=== PATIENT | male | born 1975 | race Two or more races ===

== ENCOUNTER 2017-09-08 15:15 | Emergency (ER) | payer SELFPAY ==
[~2017-09-08] VITALS: Ht 162.6 cm; Wt 79.4 kg
[2017-09-08] MEDS ORDERED: SODIUM CHLORIDE 0.9% 1,000 ML IV ONE (15:19)
[2017-09-08] MEDS ORDERED: ASPirin 325 MG TAB PO ONE (15:30)
[2017-09-08] MEDS ORDERED: NITROGLYCERIN 0.4 MG SL TAB SL ONE (15:30)
[2017-09-08 16:29] LABS: Albumin 3.9 g/dL (3.4-5.0); Alkaline Phosphatase 71 U/L (45-117); Anion Gap 7 (5-15); Aspartate Aminotransferase 14 U/L (15-37); BUN/Creatinine Ratio 7.6; Bilirubin, Total 0.7 mg/dL (0.2-1.0); Blood Urea Nitrogen 5 mg/dL (7-18); Calcium 8.8 mg/dL (8.5-10.1); Carbon Dioxide 25 mmol/L (21-32); Chloride 106 mmol/L (98-107); GFR African American 169 mL/min; GFR Non-African American 139 mL/min; Glucose 109 mg/dL (74-106); Potassium 3.4 mmol/L (3.5-5.1); Sodium 138 mmol/L (136-145); Total Protein 7.7 g/dL (6.4-8.2)
[2017-09-08 16:30] LABS: Basophils # (auto) 0.1 uL; Eosinophils # (auto) 0 uL; Eosinophils % (auto) 0.6 % (0.0-7.0); Monocytes # (auto) 0.7 uL; Nucleated Red Blood Cells % 0.1 %
[2017-09-08 16:31] LABS: Basophils % (auto) 0.7 % (0.0-2.0); Lymphocytes # (auto) 1.3 uL; Lymphocytes % (auto) 16.6 % (10.0-50.0); Mean Corpuscular Hemoglobin 21.8 pg (28.0-32.0); Mean Corpuscular Hgb Conc. 31.4 g/dL (32.0-36.0); Mean Corpuscular Volume 69.6 fL (80.0-100.0); Mean Platelet Volume 8.6 fL (6.9-10.8); Monocytes % (auto) 9.4 % (0.0-12.0); Neutrophils # (auto) 5.7 uL; Neutrophils % (auto) 72.7 % (37.0-80.0); Platelet Count (auto) 361 10^3/uL (140-450); White Blood Cell 7.8 10^3/uL (4.4-10.8)
[2017-09-08 16:45] LABS: Red Cell Distribution Width 20.8 % (11.8-14.3)
[2017-09-08 17:29] LABS: INR 0.96 (0.9-1.15); Partial Thromboplastin Time 25.2 sec (22.64-33.71); Prothrombin Time 10.5 sec (9.37-12.3)
[2017-09-08 19:00] VITALS: BP 140/74
[2017-09-08 19:12] LABS: Anisocytosis Slight; Hypochromia Moderate; Microcytosis Marked; Platelet Estimate Adequate
== END 2017-09-08 20:43 | disposition home or self-care (01) ==
LOC: ER 15:15
DX: F41.9 Anxiety disorder, unspecified (principal); I10 Essential (primary) hypertension; R51 Headache
CPT/HCPCS: 36415; 70450; 71010; 80053; 84443; 84484; 85025; 85610; 85730; 93005; 96360; 99285; J7030

== ENCOUNTER 2017-09-09 01:20 | Emergency (ER) | payer SELFPAY ==
[~2017-09-09] VITALS: Ht 162.6 cm; Wt 54.4 kg
[2017-09-09 01:25] VITALS: BP 168/123
[2017-09-09] MEDS ORDERED: cloNIDine HCL 0.1 MG TAB ONE (01:29)
[2017-09-09] MEDS ORDERED: cloNIDine HCL 0.1 MG TAB PO ONE (01:45)
== END 2017-09-09 08:15 | disposition left against medical advice (07) ==
LOC: EDBD 01:20 → ER 01:22
DX: I10 Essential (primary) hypertension (principal); Z53.21 Procedure and treatment not carried out due to patient leaving prior to being seen by health care provider

== ENCOUNTER 2017-11-13 07:41 | Emergency (ER) | payer SELFPAY ==
[~2017-11-13] VITALS: Ht 160 cm; Wt 68.0 kg
[2017-11-13 09:24] VITALS: BP 117/83
== END 2017-11-13 09:31 | disposition home or self-care (01) ==
LOC: ER 07:41
DX: F41.9 Anxiety disorder, unspecified (principal); I10 Essential (primary) hypertension

== ENCOUNTER 2018-01-17 21:14 | Emergency (ER) | payer MEDICAID ==
[~2018-01-17] VITALS: Ht 162.6 cm; Wt 56.7 kg
[2018-01-17] MEDS ORDERED: cloNIDine HCL 0.1 MG TAB ONE (21:21)
[2018-01-17] MEDS ORDERED: cloNIDine HCL 0.1 MG TAB PO ONE (21:30)
[2018-01-17 22:13] LABS: Basophils # (auto) 0.1 uL; Eosinophils # (auto) 0.1 uL; Lymphocytes # (auto) 1.2 uL; Lymphocytes % (auto) 11.9 % (10.0-50.0)
[2018-01-17 22:15] LABS: Basophils % (auto) 0.5 % (0.0-2.0); Eosinophils % (auto) 0.6 % (0.0-7.0); Hemoglobin 12.9 g/dL (13.5-17.5); Mean Corpuscular Hemoglobin 25.9 pg (28.0-32.0); Mean Corpuscular Volume 78.7 fL (80.0-100.0); Monocytes # (auto) 0.9 uL; Monocytes % (auto) 9.3 % (0.0-12.0); Neutrophils # (auto) 7.8 uL; Neutrophils % (auto) 77.7 % (37.0-80.0); Nucleated Red Blood Cells % 0.1 %; Platelet Count (auto) 324 10^3/uL (140-450); Red Blood Cells 4.96 10^6/uL (4.5-5.90); Red Cell Distribution Width 16.5 % (11.8-14.3)
[2018-01-17 22:27] LABS: Alanine Aminotransferase 29 U/L (16-61); Albumin 4.2 g/dL (3.4-5.0); Anion Gap 5 (5-15); BUN/Creatinine Ratio 14.3; Blood Urea Nitrogen 10 mg/dL (7-18); Calcium 8.9 mg/dL (8.5-10.1); Carbon Dioxide 28 mmol/L (21-32); Chloride 102 mmol/L (98-107); GFR African American 158 mL/min; GFR Non-African American 130 mL/min; Glucose 110 mg/dL (74-106); Magnesium 2.5 mg/dL (1.6-2.6); Sodium 135 mmol/L (136-145)
[2018-01-17 22:37] LABS: Alkaline Phosphatase 78 U/L (45-117); Aspartate Aminotransferase 32 U/L (15-37); Bilirubin, Total 0.7 mg/dL (0.2-1.0); Total Protein 8.3 g/dL (6.4-8.2)
[2018-01-17] MEDS ORDERED: LORazepam 0.5 MG TAB PO ONE (23:15)
[2018-01-17 23:18] VITALS: BP 161/84
== END 2018-01-17 23:33 | disposition home or self-care (01) ==
LOC: ER 21:14
DX: I10 Essential (primary) hypertension (principal); R06.02 Shortness of breath; R51 Headache; E11.9 Type 2 diabetes mellitus without complications
CPT/HCPCS: 36415; 71045; 80053; 83735; 84484; 85025; 93005; 99285; J7030

== ENCOUNTER 2018-04-11 13:23 | Observation (INO) | payer SELFPAY ==
[~2018-04-11] VITALS: Ht 167.6 cm; Wt 81.6 kg
[2018-04-11] MEDS ORDERED: SODIUM CHLORIDE 0.9% 1,000 ML IVB ONE (13:41)
[2018-04-11] MEDS ORDERED: MORPHINE SULFATE 4 MG/ML SYR/VIAL IV ONE (13:45)
[2018-04-11] MEDS ORDERED: METOCLOPRAMIDE HCL 5MG/ml INJ 2ml VIAL IV ONE (13:45)
[2018-04-11 13:55] LABS: Basophils # (auto) 0.1 uL; Eosinophils # (auto) 0.1 uL; Hemoglobin 13.5 g/dL (13.5-17.5)
[2018-04-11 13:57] LABS: Basophils % (auto) 1.1 % (0.0-2.0); Eosinophils % (auto) 1.1 % (0.0-7.0); Lymphocytes # (auto) 1.4 uL; Lymphocytes % (auto) 17.8 % (10.0-50.0); Mean Corpuscular Hemoglobin 26.2 pg (28.0-32.0); Mean Corpuscular Hgb Conc. 32.1 g/dL (32.0-36.0); Mean Corpuscular Volume 81.5 fL (80.0-100.0); Monocytes # (auto) 0.9 uL; Monocytes % (auto) 11.6 % (0.0-12.0); Neutrophils # (auto) 5.4 uL; Neutrophils % (auto) 68.4 % (37.0-80.0); Platelet Count (auto) 298 10^3/uL (140-450); Red Blood Cells 5.16 10^6/uL (4.5-5.90); Red Cell Distribution Width 18.6 % (11.8-14.3)
[2018-04-11] MEDS ORDERED: cloNIDine HCL 0.1 MG TAB PO ONE (14:00)
[2018-04-11 14:10] LABS: Alanine Aminotransferase 24 U/L (16-61); Albumin 3.9 g/dL (3.4-5.0); Anion Gap 9 (5-15); Aspartate Aminotransferase 21 U/L (15-37); BUN/Creatinine Ratio 10.7; Blood Urea Nitrogen 9 mg/dL (7-18); Calcium 8.9 mg/dL (8.5-10.1); Carbon Dioxide 23 mmol/L (21-32); Chloride 102 mmol/L (98-107); GFR African American 128 mL/min; GFR Non-African American 106 mL/min; Glucose 118 mg/dL (74-106); INR 0.96 (0.9-1.15); Magnesium 2.5 mg/dL (1.6-2.6); Partial Thromboplastin Time 27.1 sec (22.64-33.71); Potassium 3.7 mmol/L (3.5-5.1); Prothrombin Time 10.5 sec (9.37-12.3); Sodium 134 mmol/L (136-145)
[2018-04-11 14:15] LABS: Alkaline Phosphatase 68 U/L (45-117); Bilirubin, Total 0.8 mg/dL (0.2-1.0); Total Protein 7.9 g/dL (6.4-8.2)
[2018-04-11 16:30] VITALS: BP 142/98
[2018-04-11 17:31] LABS: Alcohol, Urine < 3.0 mg/dL (0-5); Amphetamine Screen, Urine POSITIVE (NEGATIVE); Barbiturate Scree,Urine NEGATIVE (NEGATIVE); Benzodiazephine Screen, Urine NEGATIVE (NEGATIVE); Cannabinoid Screen, Urine NEGATIVE (NEGATIVE); Cocaine Screen, Urine NEGATIVE (NEGATIVE); Opiate Scree,Urine NEGATIVE (NEGATIVE); Phencyclidine Screen, Urine NEGATIVE (NEGATIVE)
== END 2018-04-11 16:56 | disposition home or self-care (01) | DRG 313 ==
LOC: EDBD 13:23 → ER 13:23 → OVERFLOW 13:42 → ER 16:56
PROVIDERS: ADMIT Emergency Medicine; ATTEND Emergency Medicine
DX: R07.89 Other chest pain (principal); E11.9 Type 2 diabetes mellitus without complications; I16.0 Hypertensive urgency; I10 Essential (primary) hypertension; F17.210 Nicotine dependence, cigarettes, uncomplicated; F15.10 Other stimulant abuse, uncomplicated
CPT/HCPCS: 36415; 71045; 80053; 80307; 83735; 83880; 84484; 85025; 85610; 85730; 93005; 96374; 96375; 99285; G0378; J2270; J2765

== ENCOUNTER 2018-04-23 23:14 | Observation (INO) | payer SELFPAY ==
[~2018-04-23] VITALS: Ht 167.6 cm; Wt 77.1 kg
[2018-04-24 06:00] LABS: Eosinophils % (auto) 0.3 % (0.0-7.0); Mean Corpuscular Hgb Conc. 32.9 g/dL (32.0-36.0); Monocytes # (auto) 1.1 uL; Monocytes % (auto) 6.3 % (0.0-12.0); Neutrophils # (auto) 15.8 uL; Red Blood Cells 5.32 10^6/uL (4.5-5.90)
[2018-04-24 06:02] LABS: Basophils # (auto) 0.1 uL; Basophils % (auto) 0.5 % (0.0-2.0); Eosinophils # (auto) 0 uL; Hematocrit 43.1 % (41.0-53.0); Hemoglobin 14.2 g/dL (13.5-17.5); Lymphocytes # (auto) 0.8 uL; Lymphocytes % (auto) 4.7 % (10.0-50.0); Neutrophils % (auto) 88.2 % (37.0-80.0); Platelet Count (auto) 311 10^3/uL (140-450)
[2018-04-24 06:03] LABS: INR 0.91 (0.9-1.15); Mean Corpuscular Hemoglobin 26.9 pg (28.0-32.0); Partial Thromboplastin Time 28.2 sec (23.78-33.04); Prothrombin Time 9.8 sec (9.27-12.13)
[2018-04-24 06:05] LABS: Albumin 4.3 g/dL (3.4-5.0); Anion Gap 12 (5-15); Blood Urea Nitrogen 6 mg/dL (7-18); Calcium 9.2 mg/dL (8.5-10.1); Carbon Dioxide 23 mmol/L (21-32); Chloride 95 mmol/L (98-107); Glucose 118 mg/dL (74-106); Potassium 3.4 mmol/L (3.5-5.1); Sodium 130 mmol/L (136-145)
[2018-04-24 06:07] LABS: Alanine Aminotransferase 26 U/L (16-61); Aspartate Aminotransferase 24 U/L (15-37); GFR African American 165 mL/min; GFR Non-African American 136 mL/min
[2018-04-24 06:13] LABS: Alkaline Phosphatase 75 U/L (45-117); Bilirubin, Total 1.2 mg/dL (0.2-1.0); Total Protein 8.5 g/dL (6.4-8.2)
[2018-04-24] MEDS ORDERED: LORazepam 2MG/ML-1ML VIAL IV ONE (06:45)
[2018-04-24] MEDS ORDERED: LABETALOL HCL 5 MG/ML ML 20ML VIAL IV ONE (06:45)
[2018-04-24 07:15] LABS: Urine Bacteria NONE SEEN /hpf (None Seen); Urine Blood Negative /uL (Negative); Urine Specific Gravity 1.009 (1.001-1.035); Urine WBC <1 /hpf (0 - 3)
[2018-04-24 07:37] LABS: Alcohol, Urine < 3.0 mg/dL (0-5); Amphetamine Screen, Urine POSITIVE (NEGATIVE); Barbiturate Scree,Urine NEGATIVE (NEGATIVE); Benzodiazephine Screen, Urine NEGATIVE (NEGATIVE); Cannabinoid Screen, Urine NEGATIVE (NEGATIVE); Cocaine Screen, Urine NEGATIVE (NEGATIVE); Opiate Scree,Urine NEGATIVE (NEGATIVE); Phencyclidine Screen, Urine NEGATIVE (NEGATIVE)
[2018-04-24 10:42] VITALS: BP 150/102
== END 2018-04-24 10:48 | disposition home or self-care (01) | DRG 313 ==
LOC: EDUNIT# 23:14 → EDBD 23:14 → ER 23:19 → OVERFLOW 23:20 → ER 04-24 10:48
PROVIDERS: ADMIT Anesthesiology; ATTEND Anesthesiology
DX: R07.89 Other chest pain (principal); E11.9 Type 2 diabetes mellitus without complications; F15.90 Other stimulant use, unspecified, uncomplicated; I10 Essential (primary) hypertension; I16.0 Hypertensive urgency; F17.210 Nicotine dependence, cigarettes, uncomplicated
CPT/HCPCS: 36415; 71045; 80053; 80307; 81001; 84484; 85025; 85379; 85610; 85730; 96374; 96375; 99285; G0378; J2060